=== PATIENT | female | born 1960 | race Hispanic/Latino ===

== ENCOUNTER → 2023-06-14 | Outpatient (CLI) | payer BC | END | disposition home or self-care (01) | LOC: RAH 14:38 | PROVIDERS: ATTEND Internal Medicine | DX: M47.812 Spondylosis without myelopathy or radiculopathy, cervical region (principal); M48.02 Spinal stenosis, cervical region; M54.2 Cervicalgia | CPT/HCPCS: 72040 ==

== ENCOUNTER → 2024-05-05 | Outpatient (CLI) | payer OTHER ==
--- NOTE | 2024-05-05 13:09 | HMCIMG ---
CT ABD/PEL WO CON RENAL/APPY REASON: CALCULUS OF KIDNEY COMPARISON: None. FINDINGS: Lung bases are clear. There are no focal liver lesions. There are normal-appearing kidneys.. Spleen and pancreas appear unremarkable. The gallbladder appears normal as well. Bowel loops appear unremarkable. There is an 8 mm appendicolith at the base of the appendix, the remainder of the appendix is visualized and appears normal, there is no evidence of inflammation or acute appendicitis. There is no evidence of free fluid or intraperitoneal air. There are no focal fluid collections. Aorta and retroperitoneum appear normal as do pelvic soft tissue structures. The anterior abdominal wall is intact. Osseous structures appear unremarkable. IMPRESSION: 1. No acute finding in the abdomen or pelvis. 2. There is an 8 mm appendicolith at the base of the appendix, there is no evidence of acute appendicitis. CT was performed with one or more following dose reduction techniques: automated exposure control, adjustment of the mA and kv according to patient's size, or use of a iterative reconstruction technique.
== END | disposition home or self-care (01) ==
LOC: RAH 12:13
PROVIDERS: ATTEND Internal Medicine
DX: N20.0 Calculus of kidney (principal)
CPT/HCPCS: 74176